=== PATIENT | female | born 1960 | race Caucasian/White ===

== ENCOUNTER → 2018-06-23 09:10 | Outpatient (CLI) | payer OTHER ==
[~2018-06-23 09:10] MED LIST: IBUPROFEN800 MG PO
== END | disposition home or self-care (01) ==
LOC: LAB 09:10
DX: E78.4 Other hyperlipidemia (principal); L63.8 Other alopecia areata

== ENCOUNTER 2018-06-25 14:52 | Outpatient (CLI) | payer OTHER | END 2018-06-25 15:08 | disposition home or self-care (01) | LOC: MAMO-SONO 14:52 | DX: Z12.31 Encounter for screening mammogram for malignant neoplasm of breast (principal); N60.11 Diffuse cystic mastopathy of right breast; N60.12 Diffuse cystic mastopathy of left breast ==

== ENCOUNTER 2018-10-19 07:12 | Outpatient (CLI) | payer OTHER | END 2018-10-19 07:15 | disposition home or self-care (01) | LOC: SONOGRAMA 07:12 | DX: R10.84 Generalized abdominal pain (principal) ==

== ENCOUNTER → 2020-04-13 16:05 | Outpatient (CLI) | payer OTHER | END | disposition home or self-care (01) | LOC: LAB 16:05 | PROVIDERS: ATTEND Pediatrics Neonatal-Perinatal Medicine | DX: Z20.828 Contact with and (suspected) exposure to other viral communicable diseases (principal); Z11.59 Encounter for screening for other viral diseases ==

== ENCOUNTER 2020-05-22 12:05 | Outpatient (CLI) | payer OTHER | END 2020-05-22 12:14 | disposition home or self-care (01) | LOC: RAD 12:05 | PROVIDERS: ATTEND Pediatrics | DX: A15.0 Tuberculosis of lung (principal) ==

== ENCOUNTER 2020-05-22 12:43 | Outpatient (CLI) | payer OTHER | END 2020-05-22 15:00 | disposition home or self-care (01) | LOC: CERTIFICAD 12:43 | PROVIDERS: ATTEND Pediatrics | DX: A53.9 Syphilis, unspecified (principal) ==

== ENCOUNTER → 2020-06-14 | Outpatient (CLI) | payer OTHER | END | disposition home or self-care (01) | LOC: MAMO-SONO 10:36 | PROVIDERS: ATTEND Pediatrics | DX: Z12.31 Encounter for screening mammogram for malignant neoplasm of breast (principal); N60.11 Diffuse cystic mastopathy of right breast ==

== ENCOUNTER 2020-06-15 06:00 | Outpatient (CLI) | payer OTHER | END 2020-06-15 15:42 | disposition home or self-care (01) | LOC: PPH VACUNA 06:00 | DX: Z23 Encounter for immunization (principal) ==

== ENCOUNTER 2021-05-11 10:04 | Outpatient (CLI) | payer OTHER | END 2021-05-11 10:05 | disposition home or self-care (01) | LOC: LAB 10:04 | PROVIDERS: ATTEND Pediatrics | DX: Z03.818 Encounter for observation for suspected exposure to other biological agents ruled out (principal) ==

== ENCOUNTER 2021-06-24 08:00 | Outpatient (CLI) | payer OTHER | END 2021-06-24 08:30 | disposition home or self-care (01) | LOC: PPH VACUNA 08:00 | PROVIDERS: ATTEND Emergency Medicine Pediatric Emergency Medicine | DX: Z23 Encounter for immunization (principal) ==

== ENCOUNTER 2021-06-28 08:30 | Outpatient (CLI) | payer OTHER | END 2021-06-28 08:45 | disposition home or self-care (01) | LOC: PPH VACUNA 08:30 | PROVIDERS: ATTEND Emergency Medicine Pediatric Emergency Medicine | DX: Z23 Encounter for immunization (principal) ==

== ENCOUNTER 2021-07-13 07:42 | Outpatient (CLI) | payer OTHER | END 2021-07-13 07:43 | disposition home or self-care (01) | LOC: LAB 07:42 | PROVIDERS: ATTEND Pediatrics | DX: Z20.822 Contact with and (suspected) exposure to COVID-19 (principal) ==

== ENCOUNTER 2021-09-11 09:44 | Outpatient (CLI) | payer OTHER | END 2021-09-11 09:50 | disposition home or self-care (01) | LOC: MAMO-SONO 09:44 | PROVIDERS: ATTEND Pediatrics | DX: N64.59 Other signs and symptoms in breast (principal); Z12.31 Encounter for screening mammogram for malignant neoplasm of breast ==

== ENCOUNTER 2021-09-24 09:08 | Outpatient (CLI) | payer OTHER | END 2021-09-24 09:16 | disposition home or self-care (01) | LOC: LAB 09:08 | PROVIDERS: ATTEND Pediatrics Neonatal-Perinatal Medicine | DX: E88.81 Metabolic syndrome and other insulin resistance (principal) ==

== ENCOUNTER 2022-03-11 14:42 | Outpatient (CLI) | payer OTHER | END 2022-03-11 14:52 | disposition home or self-care (01) | LOC: PPH VACUNA 14:42 | PROVIDERS: ATTEND Emergency Medicine Pediatric Emergency Medicine | DX: Z23 Encounter for immunization (principal) ==

== ENCOUNTER 2022-05-28 08:00 | Outpatient (CLI) | payer OTHER | END 2022-05-28 08:05 | disposition home or self-care (01) | LOC: PPH VACUNA 08:00 | PROVIDERS: ATTEND Emergency Medicine Pediatric Emergency Medicine | DX: Z23 Encounter for immunization (principal) ==

== ENCOUNTER 2022-06-03 10:40 | Outpatient (CLI) | payer OTHER | END 2022-06-03 15:30 | disposition home or self-care (01) | LOC: LAB 10:40 | DX: E11.9 Type 2 diabetes mellitus without complications (principal); D68.9 Coagulation defect, unspecified; N39.0 Urinary tract infection, site not specified; R07.89 Other chest pain; M20.11 Hallux valgus (acquired), right foot ==

== ENCOUNTER 2022-06-16 08:58 | Outpatient (CLI) | payer OTHER | END 2022-06-16 13:44 | disposition home or self-care (01) | LOC: LAB 08:58 | PROVIDERS: ATTEND Pediatrics | DX: Z20.822 Contact with and (suspected) exposure to COVID-19 (principal) ==

== ENCOUNTER 2022-11-06 07:13 | Outpatient (CLI) | payer OTHER | END 2022-11-06 07:30 | disposition home or self-care (01) | LOC: MAMO-SONO 07:13 | PROVIDERS: ATTEND Pediatrics | DX: N60.19 Diffuse cystic mastopathy of unspecified breast (principal); N60.29 Fibroadenosis of unspecified breast ==

== ENCOUNTER 2022-12-11 08:08 | Emergency (ER) | payer OTHER ==
[~2022-12-11] VITALS: Ht 157.5 cm; Wt 58.1 kg
== END 2022-12-11 10:04 | disposition home or self-care (01) ==
LOC: ER 08:08
DX: S01.82XA Laceration with foreign body of other part of head, initial encounter (principal); W01.0XXA Fall on same level from slipping, tripping and stumbling without subsequent striking against object, initial encounter; Y93.89 Activity, other specified; Y92.230 Patient room in hospital as the place of occurrence of the external cause

== ENCOUNTER 2023-05-28 | Outpatient (CLI) | payer OTHER | END 2023-05-28 00:15 | disposition home or self-care (01) | LOC: PPH VACUNA | PROVIDERS: ATTEND Emergency Medicine Pediatric Emergency Medicine | DX: Z23 Encounter for immunization (principal) | CPT/HCPCS: 90686; G0008 ==

== ENCOUNTER 2024-07-18 08:50 | Outpatient (CLI) | payer OTHER | END 2024-07-18 09:00 | disposition home or self-care (01) | LOC: PPH VACUNA 08:50 | PROVIDERS: ATTEND Emergency Medicine Pediatric Emergency Medicine | DX: Z23 Encounter for immunization (principal) ==